=== PATIENT | female | born 1995 | race Caucasian/White ===

== ENCOUNTER 2016-11-16 12:56 | Emergency (ER) | payer BC ==
[~2016-11-16] VITALS: Ht 172.7 cm; Wt 72.8 kg
[~2016-11-16 12:56] MED LIST: ACYC400T PO; BCPILLS PO; PRED10TA PO
[2016-11-16 12:59] VITALS: TEMP 36.7; Ht 172.7 cm; Wt 72.8 kg
[2016-11-16] MEDS ORDERED: SODIUM CHLORIDE 0.9% 1000ML 1,000 ML IV STA (13:23)
--- NOTE | 2016-11-16 13:28 | EMERGENCY ROOM VISIT NOTE ---
History First contact with patient: 13:05 Chief Complaint: ABDOMINAL PAIN Stated Complaint: PAIN IN LOWER ABDOMEN,REFERRED BY OBGYN Nursing Triage Summary: Patient presents with a one year history of right suprapubic adominal pain. Fletcher does report that currently she has altered her BCP so that her period would be changed. Her last LMP was 5.5-6 weeks ago. Negative nausea/vomiting, negative diarrhea. Sent by doctor's office for evaluation History of Present Illness The patient is a 21 year old female who presents to the Emergency Room with complaints of right lower abdominal pain. The patient has a history of polycystic ovarian syndrome. She has very irregular menses. She does take control pills. She states that the last 2 month she skipped the placebo pills and did not get a period. The patient states that she has had intermittent right lower quadrant pain that comes and goes approximately every 1 month. The patient states she saw [facility] today and was referred to the emergency department. She has had a pelvic ultrasound in the past that was negative. She was seen here last August and had a CT scan which revealed urinary and kidney infection. The patient states she has also had a barium swallow. She states this pain feels very similar to the pain that she gets intermittently. She denies any fevers. She denies any earache, sore throat or cough. She denies any pain in her chest or trouble breathing. She denies any nausea, vomiting or diarrhea. She denies any vaginal bleeding or discharge. She denies any concern for sexually-transmitted infection. She denies any urinary symptoms. Review of Systems A 10 system review of systems was completed with positives and pertinent negatives listed in the HPI. Past Medical/Surgical History Medical Problems: (1) Polycystic ovarian disease Family History No pertinent family history Social History Smoking Status: Never Smoker Alcohol Use: none Drug Use: none Marital Status: single Housing Status: lives with family Occupation Status: [employer] student Current/Historical Medications Scheduled Control Pills ( Control Pills), 1 TAB PO DAILY Scheduled PRN Valacyclovir HCl (Valacyclovir HCl), 500 MG PO BID PRN for COLD SORES Allergies Coded Allergies: No Known Allergies (Unverified , 08/29/15) Physical Exam Vital Signs Date Time Temp Pulse Resp B/P Pulse Ox O2 Delivery O2 Flow Rate FiO2 11/16/16 17:25 84 16 107/67 99 11/16/16 15:18 77 16 118/69 98 11/16/16 12:59 36.7 90 20 134/86 99 Room Air Physical Exam VITALS: Vitals are noted on the nurse's note and reviewed by myself. Vital signs stable. The patient is afebrile. She is not tachycardic, tachypneic or hypoxic. GENERAL: This is a 21-year-old female, in no acute distress, nondiaphoretic, well-developed well-nourished. SKIN: The skin was without rashes, erythema, edema, or bruising. There is no tenting of the skin. Capillary reflex less than 2 seconds. HEAD: Normocephalic atraumatic. EARS: The external ears are normal in appearance. EYES: Pupils equal round and reactive to light and accommodation. Conjunctivae without injection, sclerae without icterus. Extraocular movements intact. NOSE: Patent, turbinates without inflammation or discharge. MOUTH: Mucous membranes moist. Tonsils are not enlarged. Pharynx without erythema or exudate. Uvula midline. Airway patent. Tongue does not deviate. NECK: Supple without nuchal rigidity. No lymphadenopathy. No thyromegaly. Cervical spine is nontender. No JVD. HEART: Regular rate and rhythm without murmurs gallops or rubs. LUNGS: Clear to auscultation bilaterally without wheezes, rales or rhonchi. No retractions or accessory muscle use. ABDOMEN: Positive bowel sounds x 4. Soft, moderate right lower quadrant tenderness, without masses or organomegaly. MUSCULOSKELETAL: No muscle atrophy, erythema, or edema noted. Full range of motion in all extremities. Normal gait. Strength 5/5 throughout. NEURO: Patient was alert and oriented to person place and time. No focal neurological deficits. Medical Decision & Procedures ER Provider Diagnostic Interpretation: [~ rep ct add3]] APPENDIX ULTRASOUND HISTORY: Right lower quadrant pain. Evaluate the appendix. COMPARISON: CT of the abdomen and pelvis August 29, 2015. FINDINGS: The appendix was not visualized by sonography. No sonographic abnormality was identified within the right lower quadrant. IMPRESSION: Nonvisualization of the appendix. If persistent clinical concern for acute appendicitis, a CT is recommended. [~ rep ct add3]] PELVIC ULTRASOUND CLINICAL HISTORY: Right-sided pelvic pain. COMPARISON STUDY: CT of the abdomen and pelvis August 29, 2015. FINDINGS: The uterus measures 6.7 x 3 x 4.7 cm. The endometrium measures 2 mm in thickness. The ovaries are normal by sonography. The right measures 2.6 x 1.7 x 1.7 cm and the left measures 2.9 x 1.7 x 2.2 cm. IMPRESSION: Normal pelvic ultrasound. [~ rep ct add3]] ABDOMEN AND PELVIS CT WITH IV AND ORAL CONTRAST CT DOSE: 341.96 mGy.cm HISTORY: Pain RLA pain TECHNIQUE: Multiaxial CT images of the abdomen and pelvis were performed following the use of intravenous and oral contrast. COMPARISON STUDY: 08/29/2015 FINDINGS: Liver spleen and pancreas are uniform. Abdominal as well as pelvic bowel pattern is nonobstructive. The appendix is normal. There is a 2 cm right ovarian cyst. Bladder is midline. There is no free fluid within the pelvic cul-de-sac. IMPRESSION: 1. 2 cm right ovarian cyst. 2. Otherwise negative study. 3. Nonobstructive bowel pattern. 4. Normal appendix. Laboratory Results 11/16/16 13:40 Red Blood Count 4.97, Mean Corpuscular Volume 88.9, Mean Corpuscular Hemoglobin 30.2, Mean Corpuscular Hemoglobin Concent 33.9, Mean Platelet Volume 11.2, Neutrophils (%) (Auto) 66.7, Lymphocytes (%) (Auto) 24.5, Monocytes (%) (Auto) 7.3, Eosinophils (%) (Auto) 0.8, Basophils (%) (Auto) 0.5, Neutrophils # (Auto) 4.12, Lymphocytes # (Auto) 1.51, Monocytes # (Auto) 0.45, Eosinophils # (Auto) 0.05, Basophils # (Auto) 0.03 11/16/16 13:40 Test 11/16/16 13:40 11/16/16 13:47 White Blood Count 6.17 K/uL (4.8-10.8) Red Blood Count 4.97 M/uL (4.2-5.4) Hemoglobin 15.0 g/dL (12.0-16.0) Hematocrit 44.2 % (37-47) Mean Corpuscular Volume 88.9 fL (80-100) Mean Corpuscular Hemoglobin 30.2 pg (25-34) Mean Corpuscular Hemoglobin Concent 33.9 g/dl (32-36) Platelet Count 268 K/uL (130-400) Mean Platelet Volume 11.2 fL (7.4-10.4) Neutrophils (%) (Auto) 66.7 % Lymphocytes (%) (Auto) 24.5 % Monocytes (%) (Auto) 7.3 % Eosinophils (%) (Auto) 0.8 % Basophils (%) (Auto) 0.5 % Neutrophils # (Auto) 4.12 K/uL (1.4-6.5) Lymphocytes # (Auto) 1.51 K/uL (1.2-3.4) Monocytes # (Auto) 0.45 K/uL (0.11-0.59) Eosinophils # (Auto) 0.05 K/uL (0-0.5) Basophils # (Auto) 0.03 K/uL (0-0.2) RDW Standard Deviation 42.4 fL (36.4-46.3) RDW Coefficient of Variation 13.0 % (11.5-14.5) Immature Granulocyte % (Auto) 0.2 % Immature Granulocyte # (Auto) 0.01 K/uL (0.00-0.02) Anion Gap 10.0 mmol/L (3-11) Est Creatinine Clear Calc Drug Dose 128.2 ml/min Estimated GFR () 143.5 Estimated GFR (Non- 123.9 BUN/Creatinine Ratio 15.1 (10-20) Calcium Level 9.4 mg/dl (8.5-10.1) Total Bilirubin 0.9 mg/dl (0.2-1) Aspartate Amino Transf (AST/SGOT) 15 U/L (15-37) Alanine Aminotransferase (ALT/SGPT) 18 U/L (12-78) Alkaline Phosphatase 39 U/L (45-117) Total Protein 7.5 gm/dl (6.4-8.2) Albumin 4.2 gm/dl (3.4-5.0) Globulin 3.3 gm/dl (2.5-4.0) Albumin/Globulin Ratio 1.3 (0.9-2) Lipase 91 U/L (73-393) Urine Color YELLOW Urine Appearance CLEAR (CLEAR) Urine pH 6.0 (4.5-7.5) Urine Specific [place] 1.015 (1.000-1.030) Urine Protein NEG (NEG) Urine Glucose (UA) NEG (NEG) Urine Ketones 1+ (NEG) Urine Occult Blood NEG (NEG) Urine Nitrite NEG (NEG) Urine Bilirubin NEG (NEG) Urine Urobilinogen NEG (NEG) Urine Leukocyte Esterase NEG (NEG) Urine Test NEG (NEG) Medications Administered Medications (Trade) Dose Ordered Sig/Fidel Route Start Time Stop Time Status Last Admin Dose Admin Sodium Chloride (Nss 1000ml) 1,000 ml @ 999 mls/hr Q1H1M STAT IV 11/16/16 13:23 11/16/16 14:23 DC 11/16/16 13:49 999 MLS/HR ED Course The patient was seen and examined. Previous visits were reviewed. The patient does not have a fever or leukocytosis. She does not have any significant electrolyte abnormality. Lipase is not elevated. Urinalysis reveals 1+ ketones. Initially, pelvic ultrasound and right lower quadrant abdominal ultrasounds were obtained. These were unremarkable. The patient presents with right lower quadrant pain. The pain is intermittent. She has a history of polycystic ovarian syndrome. She recently skipped her period by not taking her placebo control pills. The patient's symptoms certainly seem to be consistent with ovarian cyst; however, the ultrasound was negative. The patient was seen by [facility] and referred to the emergency department with concern of appendicitis. Given that the imaging as above was nondiagnostic, I discussed the risks, benefits and alternatives of CT imaging of the abdomen and pelvis. The patient advised to proceed with a CT scan. A CT scan of the abdomen and pelvis with IV and oral contrast was obtained. This does reveal a 2 cm right-sided ovarian cyst. The appendix is normal. The patient is encouraged to follow-up with [facility] for further evaluation and management. The case was discussed with Dr. Mello who agrees the assessment and treatment plan Medical Decision DIFFERENTIAL DIAGNOSIS: Hepatitis, cholecystitis, cholangitis, biliary colic, pancreatitis, pneumonia, subdiaphragmatic abscess, appendicitis, inguinal hernia , nephrolithiasis, inflammatory bowel disease, mesenteric adenitis, peptic ulcer disease, GERD, gastritis, pancreatitis, myocardial infarction, pericarditis, ruptured aortic aneurysm, appendicitis, gastroenteritis, bowel obstruction, splenic infarct, diverticulitis, mesenteric ischemia, metabolic, peritonitis, Pelvic inflammatory disease, ovarian cyst, ovarian torsion, ovarian rupture, , ectopic , endometriosis, endometritis, urinary tract infection, ruptured ovarian cyst, tubo-ovarian abscess, among others. Impression Primary Impression: Ovarian cyst Departure Information Dispostion Home / Self-Care Condition GOOD Referrals RV. Whitt MD (PCP) Kaelyn Dodd MD Patient Instructions ED Cyst Ovarian, [facility] Additional Instructions Motrin 600mg every 6-8 hours for pain Contact [facility] for a follow up appointment and recheck Return with worsening symptoms
[2016-11-16] MEDS ORDERED: OPTIRAY 320 IV PRN (13:30)
[2016-11-16] MEDS ORDERED: VLT500 PO (13:43)
[2016-11-16 13:53] LABS: BASO % 0.5 %; BASO ABS # 0.03 K/uL (0-0.2); COMPLETE YES; EOS % 0.8 %; HEMATOCRIT 44.2 % (37-47); IG% 0.2 %; LYMPH % 24.5 %; LYMPH ABS # 1.51 K/uL (1.2-3.4); MEAN CELL VOLUME 88.9 fL (80-100); MEAN CORPUSCULAR HEMOGLOBIN 30.2 pg (25-34); MEAN CORPUSCULAR HGB CONC 33.9 g/dl (32-36); MEAN PLATELET VOLUME 11.2 fL (7.4-10.4); MONO % 7.3 %; NEUT % 66.7 %; PLATELET COUNT 268 K/uL (130-400); RED BLOOD COUNT 4.97 M/uL (4.2-5.4); WHITE BLOOD COUNT 6.17 K/uL (4.8-10.8)
[2016-11-16 14:00] LABS: URINE APPEARANCE CLEAR (CLEAR); URINE BILIRUBIN NEG (NEG); URINE COLOR YELLOW; URINE NITRITE NEG (NEG); URINE SPECIFIC GRAVITY 1.015 (1.000-1.030); UROBILINOGEN NEG (NEG); ZZUR CULT IF INDIC CLEAN CATCH NO
[2016-11-16 14:02] LABS: MANUAL MICROSCOPIC REQUIRED? NO; REVIEW REQ? NO
[2016-11-16 14:15] LABS: CALCIUM 9.4 mg/dl (8.5-10.1)
[2016-11-16 14:18] LABS: BUN/CREATININE RATIO 15.1 (10-20); CREATININE 0.7 mg/dl (0.60-1.20); POTASSIUM 3.6 mmol/L (3.5-5.1)
[2016-11-16 14:21] LABS: ALB/GLOB RATIO 1.3 (0.9-2)
--- NOTE | 2016-11-16 15:08 | DIAGNOSTIC IMAGING REPORT ---
PELVIC ULTRASOUND CLINICAL HISTORY: Right-sided pelvic pain. COMPARISON STUDY: CT of the abdomen and pelvis August 29, 2015. FINDINGS: The uterus measures 6.7 x 3 x 4.7 cm. The endometrium measures 2 mm in thickness. The ovaries are normal by sonography. The right measures 2.6 x 1.7 x 1.7 cm and the left measures 2.9 x 1.7 x 2.2 cm. IMPRESSION: Normal pelvic ultrasound. Electronically signed by: Ki Carrillo M.D. 11/16/2016 3:07 PM Dictated Date/Time: 11/16/2016 3:06 PM
--- NOTE | 2016-11-16 15:09 | DIAGNOSTIC IMAGING REPORT ---
APPENDIX ULTRASOUND HISTORY: Right lower quadrant pain. Evaluate the appendix. COMPARISON: CT of the abdomen and pelvis August 29, 2015. FINDINGS: The appendix was not visualized by sonography. No sonographic abnormality was identified within the right lower quadrant. IMPRESSION: Nonvisualization of the appendix. If persistent clinical concern for acute appendicitis, a CT is recommended. Electronically signed by: Ki Carrillo M.D. 11/16/2016 3:08 PM Dictated Date/Time: 11/16/2016 3:07 PM
--- NOTE | 2016-11-16 16:44 | DIAGNOSTIC IMAGING REPORT ---
ABDOMEN AND PELVIS CT WITH IV AND ORAL CONTRAST CT DOSE: 341.96 mGy.cm HISTORY: Pain RLA pain TECHNIQUE: Multiaxial CT images of the abdomen and pelvis were performed following the use of intravenous and oral contrast. COMPARISON STUDY: 08/29/2015 FINDINGS: Liver spleen and pancreas are uniform. Abdominal as well as pelvic bowel pattern is nonobstructive. The appendix is normal. There is a 2 cm right ovarian cyst. Bladder is midline. There is no free fluid within the pelvic cul-de-sac. IMPRESSION: 1. 2 cm right ovarian cyst. 2. Otherwise negative study. 3. Nonobstructive bowel pattern. 4. Normal appendix. Electronically signed by: Oral Mayen M.D. 11/16/2016 4:43 PM Dictated Date/Time: 11/16/2016 4:38 PM
[2016-11-16 17:25] VITALS: BP 107/67; PULSE 84; O2SAT 99
== END 2016-11-16 17:25 | disposition home or self-care (01) ==
LOC: C.EDB 12:57 → C.EDC 17:25
DX: N83.201 Unspecified ovarian cyst, right side (principal); Z79.3 Long term (current) use of hormonal contraceptives

== ENCOUNTER → 2017-06-16 | Outpatient (CLI) | payer BC ==
[~2017-06-16] MED LIST changes: -ACYC400T PO; -PRED10TA PO; +VLT500 PO
== END | disposition home or self-care (01) ==
LOC: C.LABSPEC 13:44
PROVIDERS: ATTEND Obstetrics & Gynecology
DX: Z11.3 Encounter for screening for infections with a predominantly sexual mode of transmission (principal)